=== PATIENT | male | born 1950 | race Caucasian/White ===

== ENCOUNTER 2017-05-15 09:32 | Day surgery (SDC) | payer MEDICARE, BC ==
[~2017-05-15 09:32] MED LIST: LIDOCAINE HCL 1% MPF SOL ONE; PROPOFOL 500 MG/50 ML EMU IV ONE
[2017-05-15 13:40] VITALS: RESP 16; TEMP 98.1
[2017-05-15 13:48] VITALS: BP 133/76; PULSE 71; O2SAT 94
== END 2017-05-15 14:40 | disposition home or self-care (01) | DRG 951 ==
LOC: SURG 09:32
PROVIDERS: ATTEND Surgery
DX: Z12.11 Encounter for screening for malignant neoplasm of colon (principal); D12.2 Benign neoplasm of ascending colon; Z86.010 Personal history of colon polyps; K57.30 Diverticulosis of large intestine without perforation or abscess without bleeding; D12.4 Benign neoplasm of descending colon
CPT/HCPCS: J2001; J2704